=== PATIENT | female | born 1970 | race African-American/Black ===

== ENCOUNTER 2021-06-17 10:37 | Emergency (ER) | payer OTHER ==
[~2021-06-17] VITALS: Ht 175.3 cm; Wt 73.0 kg
[2021-06-17] MEDS ORDERED: ZESTORETIC 20-1 EAC1 (10:47)
[2021-06-17] MEDS ORDERED: AMLODIPINE-OLM1 EACH (10:48)
== END 2021-06-17 14:00 | disposition home or self-care (01) ==
LOC: ER 10:37
DX: R42 Dizziness and giddiness (principal); I10 Essential (primary) hypertension